=== PATIENT | female | born 1955 | race Caucasian/White ===

== ENCOUNTER 2017-04-22 05:33 | Day surgery (SDC) | payer BC ==
[2017-03-29 12:52] VITALS: BMI 28.0
--- NOTE | 2017-03-29 13:24 | PAT Medication Instructions ---
Service Date Mar 29, 2017. Current Home Medication List Buspirone Hcl (Buspirone Hcl), 10 MG PO HS Buspirone Hcl (Buspar), 15 MG PO QAM Desloratadine (Clarinex), 5 MG PO QAM Escitalopram Oxalate (Lexapro), 20 MG PO QAM Levothyroxine Sodium (Levothyroxine Sodium), 1 TAB PO QAM Lovastatin (Lovastatin), 10 MG PO HS Mirabegron (Myrbetriq Er), 50 MG PO QAM Omeprazole (Prilosec), 20 MG PO QAM [vitamin d3], 2,000 UNITS PO QAM Medication Instructions For Your Scheduled Surgery - Hold the following medications the morning of surgery: [vitamin d3], 2,000 UNITS PO QAM Mirabegron (Myrbetriq Er), 50 MG PO QAM Desloratadine (Clarinex), 5 MG PO QAM - Take the following medications the morning of surgery with a sip of water: Omeprazole (Prilosec), 20 MG PO QAM Levothyroxine Sodium (Levothyroxine Sodium), 1 TAB PO QAM Escitalopram Oxalate (Lexapro), 20 MG PO QAM Buspirone Hcl (Buspar), 15 MG PO QAM - Take the following medications as scheduled the night before surgery: Lovastatin (Lovastatin), 10 MG PO HS Buspirone Hcl (Buspirone Hcl), 10 MG PO HS If you have any questions please call us at [phone] or [phone] or [phone]
[2017-03-29 14:08] LABS: URINE APPEARANCE CLEAR (CLEAR); URINE BILIRUBIN NEG (NEG); URINE COLOR YELLOW; URINE NITRITE NEG (NEG); URINE SPECIFIC GRAVITY 1.017 (1.000-1.030); UROBILINOGEN NEG (NEG)
[2017-03-29 14:09] LABS: MANUAL MICROSCOPIC REQUIRED? NO; REVIEW REQ? NO
[2017-03-29 14:22] LABS: BASO % 0.6 %; BASO ABS # 0.04 K/uL (0-0.2); COMPLETE YES; EOS % 2.7 %; IG% 0.2 %; LYMPH % 28.5 %; LYMPH ABS # 1.81 K/uL (1.2-3.4); MEAN CELL VOLUME 89.1 fL (80-100); MEAN CORPUSCULAR HEMOGLOBIN 27.9 pg (25-34); MEAN CORPUSCULAR HGB CONC 31.4 g/dl (32-36); MEAN PLATELET VOLUME 10.4 fL (7.4-10.4); MONO % 7.4 %; NEUT % 60.6 %; PLATELET COUNT 223 K/uL (130-400); RED BLOOD COUNT 4.94 M/uL (4.2-5.4); WHITE BLOOD COUNT 6.34 K/uL (4.8-10.8)
--- NOTE | 2017-03-29 14:27 | DIAGNOSTIC IMAGING REPORT ---
TWO VIEW CHEST CLINICAL HISTORY: Preoperative examination.. FINDINGS: PA and lateral chest radiographs are compared to study dated 11/04/2012. The cardiomediastinal silhouette is unremarkable. Foci of linear atelectasis versus scarring are present in both lungs. The lungs and pleural spaces are otherwise clear. There is no pneumothorax. The skeletal structures are osteopenic. Degenerative change is noted in the spine. IMPRESSION: No active disease in the chest. Electronically signed by: Shree Degroot M.D. 03/29/2017 2:25 PM Dictated Date/Time: 03/29/2017 2:25 PM
[2017-03-29 15:30] LABS: BUN/CREATININE RATIO 19.2 (10-20); CREATININE 0.9 mg/dl (0.60-1.20); POTASSIUM 4.1 mmol/L (3.5-5.1)
[~2017-04-22] VITALS: Ht 167.6 cm; Wt 78.1 kg
[~2017-04-22 05:33] MED LIST: BUSP-8 PO; BUSP15TA70 PO; CLR/5 PO; ESCI1TAB10 PO; LEVO50TA6 PO; MIRA1TAB3 PO; MVC20 PO; PRLSR20 PO; vitamin d3 PO
[2017-04-22 05:51] VITALS: BP 168/87; PULSE 90; TEMP 37; O2SAT 100; Ht 167.6 cm; Wt 78.1 kg
[2017-04-22] MEDS ORDERED: LACTATED RINGER'S 1000ML 1,000 ML IV SCH (06:00)
[2017-04-22] MEDS ORDERED: CIPROFLOXACIN / D5W 400 MG IV SCH (06:00)
[2017-04-22] MEDS ORDERED: PROPOFOL IV EMULSION 10 MG/ML 20 ML VIAL IV ONE (06:37)
[2017-04-22] MEDS ORDERED: DEXAMETHASONE SOD INJ 4 MG/ML VIAL ONE (06:37)
[2017-04-22] MEDS ORDERED: LIDOCAINE HCL 2% 2 ML VIAL (20MG/ML) ONE (06:37)
[2017-04-22] MEDS ORDERED: ONDANSETRON INJ 2 MG/ML 2 ML VIAL ONE (06:37)
[2017-04-22] MEDS ORDERED: MIDAZOLAM HCL 1 MG/ML 2ML VIAL ONE (06:38)
[2017-04-22] MEDS ORDERED: FENTANYL CITRATE INJ 50 MCG/1 ML 2 ML VIAL ONE (06:38)
[2017-04-22] MEDS ORDERED: BUPIVACAINE/EPINEPHRINE 0.5% MPF 1:200,000 10 ML VIAL ONE (06:59)
[2017-04-22] MEDS ORDERED: CLINDAMYCIN PHOS 2% VAG CR 40 GM TUBE ONE (07:00)
[2017-04-22] MEDS ORDERED: FENTANYL CITRATE INJ 50 MCG/1 ML 2 ML VIAL IV PRN (07:00)
[2017-04-22] MEDS ORDERED: ATROPINE SULFATE 0.1 MG/ML 5ML SYR IV PRN (07:00)
[2017-04-22] MEDS ORDERED: EpHEDrine SULFATE INJ 50 MG/ML AMP IV PRN (07:00)
[2017-04-22] MEDS ORDERED: ONDANSETRON INJ 2 MG/ML 2 ML VIAL IV PRN (07:00)
[2017-04-22] MEDS ORDERED: HYDROmorphone INJ 1 MG/ML SYR IV PRN (07:00)
--- NOTE | 2017-04-22 07:21 | History & Physical Bridge Note ---
H&P Re-Evaluation Bridge Note: I have examined the patient, reviewed the History & Physical and in the interval since the performance of the History & Physical I have noted the following changes of clinical significance: No changes noted
[2017-04-22] MEDS ORDERED: BACITRACIN 50000 UNIT VIAL ONE (07:45)
[2017-04-22] MEDS ORDERED: EpHEDrine SULFATE INJ 50 MG/ML AMP ONE (07:55)
[2017-04-22] MEDS ORDERED: KETOROLAC TROMETHAMINE 30 MG/ML VIAL ONE (08:05)
[2017-04-22] MEDS ORDERED: OXYCODONE/ACETAMINOPHEN 5-325 TAB PO PRN (08:30)
[2017-04-22] MEDS ORDERED: DOCU-94 PO (08:34)
[2017-04-22] MEDS ORDERED: SULF800T23 PO (08:34)
[2017-04-22] MEDS ORDERED: OXYC-57 PO (08:34)
--- NOTE | 2017-04-22 08:42 | Discharge Instructions ---
Discharge Instructions Date of Service Apr 22, 2017. Admission Reason for Admission: Urinary Stress Incontinence Discharge Discharge Diagnosis / Problem: Urinary stress incontinence Discharge Goals Goal(s): Decrease discomfort, Improve disease control, Therapeutic intervention Activity Recommendations Activity Limitations: as noted below Lifting Limitations: no more than 10 pounds (x 6 weeks) Exercise/Sports Limitations: rest today, gradually increase as tolerated ( Light activity x 2 week), until after follow-up appointment Shower/Bathe: tomorrow Driving or Machine Use: resume 3 days after discharge . Discharge Diet Recommended Diet: Regular Diet Procedures Procedures Performed: Midurethral Sling, transurethral approach Pending Studies Studies pending at discharge: no Medical Emergencies . Who to Call and When: Medical Emergencies: If at any time you feel your situation is an emergency, please call 911 immediately. . Non-Emergent Contact Non-Emergency issues call your: Urologist Call Non-Emergent contact if: temperature is above 101.5, your pain is not controlled, your pain is worsening, your pain is unusual for you, your pain is concerning you, wound has increased drainage, wound has increased redness, wound has increased pain, you have any medication questions . . "Provider Documentation" section prepared by Shira Irwin. . VTE Core Measure Inpt VTE Proph given/why not?: SCD's [place] Drug Monitoring Program Search Results: patient reviewed within database, no issues identified
--- NOTE | 2017-04-22 08:48 | [facility] Post Operative Brief Note ---
Immediate Operative Summary Operative Date Apr 22, 2017. Pre-Operative Diagnosis Stress Urinary incontinence Post-Operative Diagnosis Stress Urinary incontinence Procedure(s) Performed Midurethral Sling, transurethral approach Surgeon Dr. Suzanne Pulliam Echo Technologist Surgeon(s) Shira Irwin PA-C Estimated Blood Loss 80 CC Findings Excellent position of sling after completion Specimens None per surgeon Drains NA Anesthesia GALMA + local Complication(s) None Disposition Recovery Room / PACU
--- NOTE | 2017-04-22 08:54 | [facility] Operative Report ---
Operative Report Operative Date Apr 22, 2017. Pre-Operative Diagnosis Stress Urinary incontinence Post-Operative Diagnosis Stress Urinary incontinence Procedure(s) Performed Midurethral Sling, transurethral approach Surgeon Dr. Suzanne Pulliam Retail Presentation Specialist Surgeon(s) Shira Irwin PA-C Estimated Blood Loss 80 CC Findings Good sling position after completion of case, normal cystoscopy after each trochar pass Specimens None per surgeon Drains NA Anesthesia GALMA + local Complication(s) None Disposition Recovery Room / PACU Indications Stress urinary incontinence Description of Procedure Patient was properly identified and brought to the operative suite after identification of appropriate consent in the chart. General anesthesia with laryngeal mask was initiated and patient was prepped and draped in standard fashion for this procedure. Full timeout procedure was followed. 16 [place] Crowder cath was placed within the urethra bladder was drained. The bladder was also drained prior to every trocar pass. Local with epinephrine was used after placement of an Allis clamp on the distal urethra to anesthetize the mid urethral location. 15 blade was used to make a midline incision and Metzenbaum scissors as well as Kitners were used to dissect on both sides of the urethra up to the level of the pelvic sidewall. Cautery was used to obtain hemostasis as necessary. 2 incisions were made lateral to the labia majora at the anterior aspect of the obturator fossa at the level of the clitoris. Using the trans-obturator mid urethral sling kit the trocar was passed from the skin incisions through the vaginal incision. Care was taken to ensure a lack of buttonholing at the level of the vaginal mucosa bilaterally. Cystoscopy with a 70 lens in good bladder distention was performed after each trocar pass demonstrating normal ureteral reflux, no evidence of bladder injury, and no hematuria. The sling was passed and noted to be in excellent position and the mid urethra. This was placed in a tension-free fashion flush with the urethra with a Pichardo scissors able to pass easily between the urethra and the sling. Sling was divided at the level of the skin and tensioning devices were removed. Excellent sling position was again confirmed. Vaginal incision was closed using 2-0 Vicryl in a running fashion. Skin incisions were closed using Dermabond. Excellent hemostasis was appreciated. Vaginal packing was placed to be removed in the postoperative period today. Crowder catheter was removed for a trial of void today. Anesthesia was reversed and patient was transferred to the recovery room in stable condition. I attest to the content of the Intraoperative Record and any orders documented therein. Any exceptions are noted below.
--- NOTE | 2017-04-22 09:12 | Anesthesiology Progress Note ---
Anesthesia Post Op Note Date & Time Apr 22, 2017 at 09:12 Vital Signs Pain Intensity: 0 Vital Signs Past 12 Hours Date Time Temp Pulse Resp B/P (MAP) Pulse Ox O2 Delivery O2 Flow Rate FiO2 04/22/17 09:03 90 12 96 04/22/17 09:03 90 12 04/22/17 09:02 155/82 04/22/17 08:58 90 12 04/22/17 08:58 90 12 95 04/22/17 08:57 162/87 04/22/17 08:53 88 14 100 04/22/17 08:53 88 14 04/22/17 08:52 92 16 04/22/17 08:52 89 16 160/83 100 04/22/17 08:47 98 16 04/22/17 08:47 96 16 156/88 100 04/22/17 08:45 163/83 04/22/17 08:42 99 13 100 04/22/17 08:42 98 13 04/22/17 08:39 164/98 04/22/17 08:37 37.2 103 12 164/98 97 Mask 10 04/22/17 05:51 37 90 18 168/87 (114) 100 Room Air Notes Mental Status: alert / awake / arousable, participated in evaluation Pt Amnestic to Procedure: Yes Nausea / Vomiting: adequately controlled Pain: adequately controlled Airway Patency, RR, SpO2: stable & adequate BP & HR: stable & adequate Hydration State: stable & adequate Anesthetic Complications: no major complications apparent
[2017-04-22 09:25] VITALS: BP 149/74; PULSE 89; TEMP 36.8; O2SAT 94
[2017-04-22 09:55] VITALS: BP 131/65; PULSE 95; O2SAT 97
[2017-04-22 10:55] VITALS: BP 131/71; PULSE 91; TEMP 36.9; O2SAT 97
== END 2017-04-22 11:25 | disposition home or self-care (01) ==
LOC: C.ACU 05:33
PROVIDERS: ATTEND Urology
DX: N39.3 Stress incontinence (female) (male) (principal); J45.909 Unspecified asthma, uncomplicated; Z79.899 Other long term (current) drug therapy

== ENCOUNTER → 2017-05-11 | Outpatient (CLI) | payer BC ==
[~2017-05-11] MED LIST changes: +OXYC-57 PO
== END | disposition home or self-care (01) ==
LOC: C.LABSPEC 17:21
PROVIDERS: ATTEND Urology
DX: N39.0 Urinary tract infection, site not specified (principal)

== ENCOUNTER → 2017-10-13 | Outpatient (CLI) | payer BC | END | disposition home or self-care (01) | LOC: C.LABMFLN 13:11 | PROVIDERS: ATTEND Nurse Practitioner Family | DX: R30.0 Dysuria (principal) ==

== ENCOUNTER → 2018-01-13 | Outpatient (CLI) | payer BC ==
[~2018-01-13] MED LIST changes: -OXYC-57 PO
[2018-01-13 14:00] LABS: BLOOD UREA NITROGEN 16 mg/dl (7-18); CALCIUM 8.7 mg/dl (8.5-10.1); CARBON DIOXIDE 29 mmol/L (21-32); CREATININE 0.94 mg/dl (0.60-1.20); GLUCOSE 85 mg/dl (70-99); POTASSIUM 3.9 mmol/L (3.5-5.1); SODIUM 143 mmol/L (136-145)
== END | disposition home or self-care (01) ==
LOC: C.LABMFLN 07:26
PROVIDERS: ATTEND Nurse Practitioner Family
DX: R60.9 Edema, unspecified (principal)

== ENCOUNTER → 2018-04-22 | Outpatient (CLI) | payer BC ==
[~2018-04-22] MED LIST changes: +ALBUAER INH; -BUSP-8 PO; +CHOL2000 PO; +FLUT0.15 INTNAS; +TROS20TA3 PO; -vitamin d3 PO
--- NOTE | 2018-04-22 14:28 | DIAGNOSTIC IMAGING REPORT ---
CHEST 2 VIEWS ROUTINE CLINICAL HISTORY: 62 years-old Female presenting with preoperative assessment. TECHNIQUE: PA and lateral views of the chest were obtained. COMPARISON: 03/29/2017. FINDINGS: Cardiomediastinal silhouette normal. Lungs and pleural spaces clear. Degenerative changes of the thoracic spine. Upper abdomen normal. IMPRESSION: 1. No acute cardiopulmonary disease. Electronically signed by: Maurizio Balbuena M.D. 04/22/2018 2:27 PM Dictated Date/Time: 04/22/2018 2:26 PM
[2018-04-22 14:32] LABS: BASO % 0.7 %; BASO ABS # 0.05 K/uL (0-0.2); EOS % 2.7 %; HEMATOCRIT 43.6 % (37-47); HEMOGLOBIN 13.8 g/dL (12.0-16.0); IG# 0.01 K/uL (0.00-0.02); LYMPH % 25.3 %; MEAN CELL VOLUME 88.1 fL (80-100); MEAN CORPUSCULAR HEMOGLOBIN 27.9 pg (25-34); MEAN CORPUSCULAR HGB CONC 31.7 g/dl (32-36); MEAN PLATELET VOLUME 10.2 fL (7.4-10.4); MONO % 7.7 %; MONO ABS # 0.58 K/uL (0.11-0.59); NEUT % 63.5 %; NEUT ABS # 4.77 K/uL (1.4-6.5); PLATELET COUNT 220 K/uL (130-400); RED CELL DISTRIBUTION WIDTH CV 13.9 % (11.5-14.5); RED CELL DISTRIBUTION WIDTH SD 45.3 fL (36.4-46.3); WHITE BLOOD COUNT 7.51 K/uL (4.8-10.8)
[2018-04-22 14:39] LABS: BLOOD UREA NITROGEN 17 mg/dl (7-18); CALCIUM 9.1 mg/dl (8.5-10.1); CARBON DIOXIDE 32 mmol/L (21-32); CREATININE 1.05 mg/dl (0.60-1.20); GLUCOSE 88 mg/dl (70-99); POTASSIUM 3.8 mmol/L (3.5-5.1); SODIUM 141 mmol/L (136-145)
== END | disposition home or self-care (01) ==
LOC: C.CPL 13:27
PROVIDERS: ATTEND Urology
DX: N39.3 Stress incontinence (female) (male) (principal); Z01.811 Encounter for preprocedural respiratory examination; Z01.810 Encounter for preprocedural cardiovascular examination

== ENCOUNTER → 2018-05-12 | Day surgery (SDC) | payer BC ==
[2018-04-21 09:37] VITALS: BMI 28.0
[2018-04-22 13:32] VITALS: BMI 29.0
--- NOTE | 2018-04-22 13:38 | PAT Medication Instructions ---
Service Date Apr 22, 2018. Current Home Medication List Albuterol Sulfate (Proventil Hfa), 2 PUFFS INH PRN Buspirone Hcl (Buspar), 15 MG PO BID Cholecalciferol (Vitamin D3), 1 CAP PO QAM Desloratadine (Clarinex), 5 MG PO QAM Escitalopram Oxalate (Lexapro), 20 MG PO QAM Fluticasone Propionate (Nasal) (Flonase Allergy Relief), 2 SPRAYS INTNAS BID PRN for RN Levothyroxine Sodium (Levothyroxine Sodium), 1 TAB PO QAM Lovastatin (Lovastatin), 10 MG PO HS Mirabegron (Myrbetriq Er), 50 MG PO QAM Omeprazole (Prilosec), 20 MG PO QAM Trospium Chloride (Trospium Chloride), 20 MG PO BID Medication Instructions For Your Scheduled Surgery - Hold the following medications the morning of surgery: Cholecalciferol (Vitamin D3), 1 CAP PO QAM Desloratadine (Clarinex), 5 MG PO QAM Mirabegron (Myrbetriq Er), 50 MG PO QAM Trospium Chloride (Trospium Chloride), 20 MG PO BID - Take the following medications the morning of surgery with a sip of water: Omeprazole (Prilosec), 20 MG PO QAM Levothyroxine Sodium (Levothyroxine Sodium), 1 TAB PO QAM Fluticasone Propionate (Nasal) (Flonase Allergy Relief), 2 SPRAYS INTNAS BID PRN for RN (if needed) Escitalopram Oxalate (Lexapro), 20 MG PO QAM Albuterol Sulfate (Proventil Hfa), 2 PUFFS INH PRN (use if needed; please bring with you to hospital day of surgery) Buspirone Hcl (Buspar), 15 MG PO BID - Take the following medications as scheduled the night before surgery: Lovastatin (Lovastatin), 10 MG PO HS Trospium Chloride (Trospium Chloride), 20 MG PO BID Fluticasone Propionate (Nasal) (Flonase Allergy Relief), 2 SPRAYS INTNAS BID PRN for RN (if needed) Albuterol Sulfate (Proventil Hfa), 2 PUFFS INH PRN (if needed) Buspirone Hcl (Buspar), 15 MG PO BID If you have any questions please call us at [phone] or [phone] or [phone]
[~2018-05-12] VITALS: Ht 167.6 cm; Wt 82.6 kg
[~2018-05-12] MED LIST changes: +ATROPINE SULFATE 0.1 MG/ML 5ML SYR IV PRN; +CIPR-255 PO; +CIPROFLOXACIN / D5W 400 MG IV SCH; +EpHEDrine SULFATE 50MG/5ML SYR ONE; +EpHEDrine SULFATE INJ 50 MG/ML AMP IV PRN; +FENTANYL CITRATE INJ 50 MCG/1 ML 2 ML VIAL IV PRN; +FENTANYL CITRATE INJ 50 MCG/1 ML 2 ML VIAL ONE; +HYDROmorphone INJ 1 MG/ML SYR IV PRN; +LACTATED RINGER'S 1000ML 1,000 ML IV SCH; +LIDOCAINE HCL 2% 2 ML VIAL (20MG/ML) ONE; +MIDAZOLAM HCL 1 MG/ML 2ML VIAL ONE; +ONDANSETRON INJ 2 MG/ML 2 ML VIAL IV PRN; +ONDANSETRON INJ 2 MG/ML 2 ML VIAL ONE; +OXYC-57 PO; +OXYCODONE/ACETAMINOPHEN 5-325 TAB PO PRN; +PHEN-775 PO; +PHENAZOPYRIDINE HCL 200 MG TAB PO PRN; +PHENYLEPHRINE 100MCG/ML 5ML SYR IV PRN; +PHENYLEPHRINE 100MCG/ML 5ML SYR ONE; +PROMETHAZINE HCL INJ 12.5 MG in SODIUM CHLORIDE 0.9% 50ML 50 ML IV PRN; +PROPOFOL IV EMULSION 10 MG/ML 20 ML VIAL ONE
[2018-05-12 09:04] VITALS: BP 169/71; PULSE 76; TEMP 37; O2SAT 99; Ht 167.6 cm; Wt 82.6 kg
--- NOTE | 2018-05-12 10:24 | Discharge Instructions ---
Discharge Instructions Date of Service May 12, 2018. Admission Reason for Admission: Urinary Stress Incontinence Discharge Discharge Diagnosis / Problem: GILL s/p Coaptite injection Discharge Goals Goal(s): Improve function, Improve disease control, Therapeutic intervention Activity Recommendations Activity Limitations: as noted below Lifting Limitations: no more than 25 pounds, gradually increase as tolerated Exercise/Sports Limitations: rest today, gradually increase as tolerated May Resume Sexual Activity: after two weeks Shower/Bathe: no limitations Driving or Machine Use: resume 1 day after discharge . Instructions / Follow-Up Instructions / Follow-Up Follow-up in office as scheduled Current Hospital Diet Patient's current hospital diet: Discharge Diet Recommended Diet: Regular Diet (good fluid intake) Procedures Procedures Performed: Cystoscopy, Coaptite Injection Pending Studies Studies pending at discharge: no Medical Emergencies . Who to Call and When: Medical Emergencies: If at any time you feel your situation is an emergency, please call 911 immediately. . Non-Emergent Contact Non-Emergency issues call your: Urologist Call Non-Emergent contact if: you have a fever, temperature is above 101, your pain is not controlled, your pain is worsening, your pain is unusual for you, your pain is concerning you, you have any medication questions . . "Provider Documentation" section prepared by Kermit Pulliam. . [place] Drug Monitoring Program Search Results: patient reviewed within database, no issues identified
--- NOTE | 2018-05-12 10:50 | [facility] Operative Report ---
Operative Report Operative Date May 12, 2018. Pre-Operative Diagnosis Stress urinary incontinence Post-Operative Diagnosis Same Procedure(s) Performed Cystoscopy, Coaptite Injection Surgeon Kermit Pulliam MD Estimated Blood Loss Minimal Findings Good urethral closure after injection of coaptite Specimens None Drains None Anesthesia Type MAC Complication(s) none Disposition no Recovery Room / PACU Indications 62-year-old pleasant female who is here today for injection of urethral bulking agent for low volume residual stress urinary incontinence after mid urethral sling one year ago. Please see H&P for further details. Intravenous ciprofloxacin provided for antibiotic coverage and SCDs used for DVT prophylaxis. Description of Procedure Patient was properly identified and brought into the operative suite after identification of appropriate consent in the chart. Monitored anesthesia care with sedation was initiated and patient was prepped and draped in standard fashion for this procedure. Full timeout procedure was followed. Collagen injection scope was introduced into the bladder patient was noted to have a mildly patulous urethra with no intravesical lesions, papillary masses or calculi. No evidence of erosion of her sling or other bladder injury was appreciated. Using Coaptite and appropriate needle 3 cc were injected at the 12 :00, 5:00 and 7:00 positions with excellent blebs being present closing the urethra. Small additional amounts of material were placed as necessary to assist with adequate mucosal apposition. No significant spillage of the Coaptite was noted. After this was complete and the material was allowed to set bladder was drained using a 14 [place] red rubber catheter with no blood being present. Anesthesia was reversed and patient was transferred to the recovery room in stable condition. Follow-up instructions: Patient is provided with prescriptions for ciprofloxacin and Pyridium and Percocet. Outpatient appointments are confirmed for follow-up. Patient is to contact our office should she note any fevers, chills, nausea, vomiting or other difficulties in the postoperative period I attest to the content of the Intraoperative Record and any orders documented therein. Any exceptions are noted below.
[2018-05-12 11:30] VITALS: BP 136/70; PULSE 71; TEMP 37; O2SAT 98
--- NOTE | 2018-05-12 11:55 | Anesthesiology Progress Note ---
Anesthesia Post Op Note Date & Time May 12, 2018 at 11:55 Vital Signs Pain Intensity: 0 Vital Signs Past 12 Hours Date Time Temp Pulse Resp B/P (MAP) Pulse Ox O2 Delivery O2 Flow Rate FiO2 05/12/18 11:30 37 71 16 136/70 98 Room Air 05/12/18 11:12 70 12 05/12/18 11:12 69 12 97 05/12/18 11:11 131/78 05/12/18 11:10 36.4 70 16 132/78 (83) 96 Room Air 05/12/18 11:07 79 17 05/12/18 11:07 79 17 96 05/12/18 11:06 136/81 05/12/18 11:03 75 18 05/12/18 11:03 75 18 97 05/12/18 11:01 124/76 05/12/18 10:58 75 18 05/12/18 10:58 74 18 96 05/12/18 10:56 126/75 05/12/18 10:53 36.1 77 16 127/70 (78) 99 Room Air 05/12/18 10:53 78 17 127/70 100 05/12/18 10:53 80 17 05/12/18 09:04 37.0 76 16 169/71 (103) 99 Room Air Notes Mental Status: alert / awake / arousable, participated in evaluation Pt Amnestic to Procedure: Yes Nausea / Vomiting: adequately controlled Pain: adequately controlled Airway Patency, RR, SpO2: stable & adequate BP & HR: stable & adequate Hydration State: stable & adequate Anesthetic Complications: no major complications apparent
[2018-05-12 12:00] VITALS: BP 139/70; PULSE 74; TEMP 37; O2SAT 98
== END | disposition home or self-care (01) ==
LOC: C.ACU 08:37
PROVIDERS: ATTEND Urology
DX: N81.11 Cystocele, midline (principal); N39.3 Stress incontinence (female) (male); N39.41 Urge incontinence; N39.0 Urinary tract infection, site not specified; M19.90 Unspecified osteoarthritis, unspecified site; J45.909 Unspecified asthma, uncomplicated; Z85.3 Personal history of malignant neoplasm of breast; Z90.710 Acquired absence of both cervix and uterus